=== PATIENT | female | born 2000 | race Two or more races ===

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

== ENCOUNTER 2021-03-04 04:20 | Emergency (ER) | payer MEDICAID ==
[~2021-03-04] VITALS: Ht 162.6 cm; Wt 64.4 kg
--- NOTE | 2021-03-04 04:28 | NUR ---
Dr. Baird at bedside for MSE.
[2021-03-04] MEDS ORDERED: FLUORESCEIN SODIUM 1 MG STRIP ONE (05:29)
[2021-03-04] MEDS ORDERED: TETRACAINE HCL 0.5% OPHT DROP 2 ML BOTTLE ONE (05:30)
[2021-03-04] MEDS ORDERED: TETRACAINE HCL 0.5% OPHT DROP 2 ML BOTTLE OP ONE (05:30)
[2021-03-04] MEDS ORDERED: FLUORESCEIN SODIUM 1 MG STRIP OP ONE (05:30)
[2021-03-04] MEDS ORDERED: KETOROLAC TROMETHAMINE 60 MG INJ IM ONE ×2 (06:15→06:37)
[2021-03-04] MEDS ORDERED: HYDROCODONE/APAP 5-325MG TABLET PO ONE (06:15)
[2021-03-04 06:22] LABS: *URINE HCG, QUAL NEGATIVE (NEGATIVE)
[2021-03-04] MEDS ORDERED: IBUP-1955 PO (06:29)
[2021-03-04] MEDS ORDERED: POLY10DR OP (06:29)
[2021-03-04] MEDS ORDERED: ACET1TAB23 PO (06:29)
[2021-03-04] MEDS ORDERED: HYDROCODONE/APAP 5-325MG TABLET ONE (06:36)
[2021-03-04 06:43] VITALS: BP 118/75
--- NOTE | 2021-03-04 06:43 | NUR ---
Patient discharged to home in stable condition. Written and verbal after care instructions given. Patient verbalizes understanding of instructions. Stressed follow up or return to ER for worsening s/s. Pt out of ER with steady gait, no acute signs of distress, VSS, all belongings taken.
== END 2021-03-04 06:44 | disposition home or self-care (01) ==
LOC: ER 04:23
DX: H20.00 Unspecified acute and subacute iridocyclitis (principal); W39.XXXA Discharge of firework, initial encounter; Y92.89 Other specified places as the place of occurrence of the external cause
CPT/HCPCS: 84703; 96372; 99283; J1885; J7030

== ENCOUNTER 2021-07-22 20:28 | Emergency (ER) | payer MEDICAID ==
[~2021-07-22] VITALS: Ht 157.5 cm; Wt 63.5 kg
[~2021-07-22 20:28] MED LIST: ACET1TAB23 PO; IBUP-1955 PO; POLY10DR OP
--- NOTE | 2021-07-22 20:35 | NUR ---
ERMD into eval patient.
[2021-07-22 21:14] LABS: *URINE HCG, QUAL NEGATIVE (NEGATIVE)
[2021-07-22] MEDS ORDERED: TDAP DIPH,PERTUSS,TET VAC/PF 0.5 ML DISP.SYRIN IM ONE ×2 (21:15→21:16)
[2021-07-22] MEDS ORDERED: IBUP-1955 PO (22:54)
--- NOTE | 2021-07-22 23:00 | NUR ---
Patient discharged to home in stable condition. Written and verbal after care instructions given. Patient verbalizes understanding of instructions. Stressed follow up or return to ER for worsening s/s. pt with steady gait, able to ambualte without assist. provided copy of cat scan results.
[2021-07-22 23:01] VITALS: BP 135/80
== END 2021-07-22 23:02 | disposition home or self-care (01) ==
LOC: ER 20:30
DX: S09.90XA Unspecified injury of head, initial encounter (principal); S33.5XXA Sprain of ligaments of lumbar spine, initial encounter; S13.9XXA Sprain of joints and ligaments of unspecified parts of neck, initial encounter; Y04.0XXA Assault by unarmed brawl or fight, initial encounter; Y92.89 Other specified places as the place of occurrence of the external cause
CPT/HCPCS: 70450; 70480; 84703; 90715; A4663

== ENCOUNTER 2022-02-17 16:34 | Emergency (ER) | payer MEDICAID ==
[~2022-02-17] VITALS: Ht 152.4 cm; Wt 74.4 kg
[2022-02-17] MEDS ORDERED: BENZ-13 PO (17:16)
--- NOTE | 2022-02-17 17:31 | NUR ---
Patient discharged to home in stable condition. Written and verbal after care instructions given. Patient verbalizes understanding of instructions. Stressed follow up or return to ER for worsening s/s.
[2022-02-17 17:35] VITALS: BP 111/74
== END 2022-02-17 17:35 | disposition home or self-care (01) ==
LOC: ER 16:34
DX: R05.3 Chronic cough (principal)
CPT/HCPCS: A4663

== ENCOUNTER 2022-06-11 17:26 | Emergency (ER) | payer MEDICAID ==
[~2022-06-11] VITALS: Ht 152.4 cm; Wt 70.8 kg
[~2022-06-11 17:26] MED LIST changes: +BENZ-13 PO
--- NOTE | 2022-06-11 18:25 | NUR ---
DR MELGAR EVALUATED THE PT. PT WAS D/C'd TO HOME. D/C INSTRUCTIONS GIVEN TO THE PT BY DR MELGAR.
[2022-06-11 18:39] VITALS: BP 129/71
== END 2022-06-11 18:39 | disposition home or self-care (01) ==
LOC: ER 17:26
DX: L03.032 Cellulitis of left toe (principal); J02.9 Acute pharyngitis, unspecified; M79.675 Pain in left toe(s)
CPT/HCPCS: A4663

== ENCOUNTER 2023-01-01 15:51 | Emergency (ER) | payer MEDICAID, OTHER ==
[~2023-01-01] VITALS: Ht 152.4 cm; Wt 70.3 kg
--- NOTE | 2023-01-01 16:04 | NUR ---
Pt seen by MD for bedside eval. Safety measures in place. Will continue to monitor.
[2023-01-01] MEDS ORDERED: POLY30DR OP (16:06)
[2023-01-01 16:17] VITALS: BP 146/93
== END 2023-01-01 16:18 | disposition home or self-care (01) ==
LOC: ER 15:51
DX: H00.015 Hordeolum externum left lower eyelid (principal); Z79.1 Long term (current) use of non-steroidal anti-inflammatories (NSAID); Z79.899 Other long term (current) drug therapy
CPT/HCPCS: A4663